=== PATIENT | female | born 1970 | race American Indian/Alaskan Native ===

== ENCOUNTER 2020-11-15 10:10 | Emergency (ER) | payer OTHER ==
[2020-11-15] MEDS ORDERED: KETOROLAC 30 MG/1 ML INJ IM ONE (10:31)
--- NOTE | 2020-11-15 11:05 | Emergency Department Report ---
ED General Adult HPI - General Chief complaint: Back Pain/Injury Stated complaint: BACK PAIN Time Seen by Provider: 11/15/20 10:15 Source: patient Mode of arrival: Ambulatory Limitations: No Limitations - History of Present Illness Initial comments: 50-year-old -Thai female patient complains of low back pain x2 weeks. She denies any injuries or heavy lifting. She rates her current pain as a 7/10 in severity and states it does improve with ibuprofen. Patient denies any loss of bladder/bowel control, saddle paresthesia, weakness in her legs, or urinary symptoms. No history of cancer per patient. - Related Data Previous Rx's Medication Instructions Recorded Last Taken Type Diclofenac Sodium 75 mg PO BID PRN #14 tablet. 11/15/20 Unknown Rx methocarbamoL [Methocarbamol] 750 - 1,500 mg PO TID PRN #24 11/15/20 Unknown Rx tablet Allergies Allergy/AdvReac Type Severity Reaction Status Date / Time No Known Allergies Allergy Unverified 11/15/20 10:11 ED Review of Systems ROS: Stated complaint: BACK PAIN Other details as noted in HPI Constitutional: denies: chills, diaphoresis, fever, malaise, weakness Respiratory: denies: shortness of breath Cardiovascular: denies: chest pain Gastrointestinal: denies: constipation, hematochezia Genitourinary: denies: urgency, dysuria, frequency, hematuria Musculoskeletal: back pain Neurological: denies: headache, numbness, paresthesias, abnormal gait ED Past Medical Hx - Past Medical History Previous Medical History?: No - Surgical History Past Surgical History?: No - Social History Smoking Status: Never Smoker Substance Use Type: None - Medications Home Medications: Home Medications Medication Instructions Recorded Confirmed Last Taken Type Diclofenac Sodium 75 mg PO BID PRN #14 tablet. 11/15/20 Unknown Rx methocarbamoL [Methocarbamol] 750 - 1,500 mg PO TID PRN #24 11/15/20 Unknown Rx tablet ED Physical Exam - General Limitations: No Limitations General appearance: alert, in no apparent distress - Head Head exam: Present: atraumatic, normocephalic - Eye Eye exam: Present: normal appearance. Absent: scleral icterus - Respiratory Respiratory exam: Absent: respiratory distress - Cardiovascular Cardiovascular Exam: Present: regular rate - GI/Abdominal GI/Abdominal exam: Present: soft. Absent: tenderness - Back Exam Back exam: Present: full ROM, paraspinal tenderness (Lumbar), vertebral tenderness (Lumbar) - Expanded Back Exam Expanded Back exam: Absent: saddle anesthesia Back exam: Sciatic Notch Tenderness: Left, Right - Neurological Exam Neurological exam: Present: alert, oriented X3, normal gait - Psychiatric Psychiatric exam: Present: normal affect, normal mood - Skin Skin exam: Present: warm, dry, intact, normal color. Absent: rash ED Course Vital Signs 11/15/20 11/15/20 11/15/20 10:11 11:17 12:19 Temperature 98.8 F 98.1 F Pulse Rate 94 H 78 Respiratory 18 18 16 Rate Blood Pressure 166/107 161/108 O2 Sat by Pulse 99 100 Oximetry ED Medical Decision Making - Radiology Data Radiology results: report reviewed LUMBAR SPINE 3 VIEWS INDICATION / CLINICAL INFORMATION: pain, no injury. COMPARISON: None available. FINDINGS: VERTEBRAE: No fracture. No significant malalignment. DISC SPACES:No significant abnormality. FACET JOINTS:No significant abnormality. ADDITIONAL FINDINGS: IUD IMPRESSION: 1. No significant abnormality. - Medical Decision Making 50-year-old -Thai female patient complains of low back pain x2 weeks. She denies any injuries or heavy lifting. She rates her current pain as a 7/10 in severity and states it does improve with ibuprofen. Patient denies any loss of bladder/bowel control, saddle paresthesia, weakness in her legs, or urinary symptoms. No history of cancer per patient. Vertebral tenderness to palpation noted on exam of the lumbar spine without obvious deformity. X-ray of the lumbar spine is negative for any acute bony abnormality. She denies any red flag symptoms. Will treat for low back pain and spasms with NSAIDs and muscle relaxers. Blood pressure noted to be significantly elevated at 166/107. She denies any neurological symptoms. Patient denies history of hypertension. Discussed importance of blood pressure management and follow-up with primary care in 2 days for recheck. Strict return precautions were discussed in detail with patient who verbalizes understanding. Critical care attestation.: If time is entered above; I have spent that time in minutes in the direct care of this critically ill patient, excluding procedure time. ED Disposition Clinical Impression: Elevated blood pressure reading Low back pain Qualifiers: Chronicity: acute Back pain laterality: bilateral Sciatica presence: with sciatica Sciatica laterality: bilateral sciatica Qualified Code(s): M54.42 - Lumbago with sciatica, left side Disposition: - TO HOME OR SELFCARE Is pt being admited?: No Condition: Stable Instructions: Acute Back Pain, Adult, Sciatica, Hypertension, Adult Prescriptions: Diclofenac Sodium 75 mg PO BID PRN #14 tablet. PRN Reason: pain methocarbamoL [Methocarbamol] 750 - 1,500 mg PO TID PRN #24 tablet PRN Reason: muscle spasm/tightness Referrals: PRIMARY CARE, [Primary Care Provider] - 11/17/20 (Blood Pressure )
--- NOTE | 2020-11-15 11:14 | XRay Report ---
LUMBAR SPINE 3 VIEWS INDICATION / CLINICAL INFORMATION: pain, no injury. COMPARISON: None available. FINDINGS: VERTEBRAE: No fracture. No significant malalignment. DISC SPACES:No significant abnormality. FACET JOINTS:No significant abnormality. ADDITIONAL FINDINGS: IUD IMPRESSION: 1. No significant abnormality. Signer Name: Karthik Workman MD Signed: 11/15/2020 11:09 AM Workstation Name: [id number]
[2020-11-15 12:21] VITALS: BP 161/108
== END 2020-11-15 12:46 | disposition home or self-care (01) ==
LOC: ED 10:10
DX: R03.0 Elevated blood-pressure reading, without diagnosis of hypertension (principal); M54.5 Low back pain; Z79.899 Other long term (current) drug therapy
CPT/HCPCS: 72100; 96372; 99283